=== PATIENT | male | born 1950 | race Caucasian/White ===

== ENCOUNTER 2016-04-13 16:24 | Inpatient (IN) | payer SELFPAY ==
[~2016-04-13] VITALS: Ht 167.6 cm; Wt 61.2 kg
[2016-04-13] MEDS ORDERED: HYDROMORPHONE 1 MG/1 ML DISP.SYRIN ONE (17:17)
[2016-04-13] MEDS ORDERED: HYDROMORPHONE 1 MG/1 ML DISP.SYRIN IV ONE (17:30)
[2016-04-13 17:34] LABS: BASOPHILS % (AUTO) 0.4 % (0.0-2.0); DIFF TOTAL % 100 %; EOSINOPHILS % (AUTO) 0.3 % (0.0-6.0); HEMATOCRIT 42 % (39-51); HEMOGLOBIN 14.2 g/dL (13.5-17.5); LYMPHOCYTES # (AUTO) 1.9 /CMM (0.8-4.8); LYMPHOCYTES % (AUTO) 18.4 % (20.0-44.0); MEAN CORPUSCULAR HEMOGLOBIN 32 PG (26.0-33.0); MEAN CORPUSCULAR HGB CONC 34 g/dl (31.0-36.0); MEAN CORPUSCULAR VOLUME 96 fL (80-96); MONOCYTES # (AUTO) 0.6 /CMM (0.1-1.30); MONOCYTES % (AUTO) 5.7 % (2.0-12.0); NEUTROPHILS % (AUTO) 75.2 % (43.0-81.0); PLATELET COUNT (AUTO) 405 /CMM (150-450); WHITE BLOOD COUNT (AUTO) 10.6 K/uL (4.3-11.0)
[2016-04-13 17:44] LABS: CALCIUM, SERUM 8.9 mg/dL (8.5-10.1); POTASSIUM 4.3 mmol/L (3.5-5.1)
[2016-04-13 19:18] LABS: INR 0.95 (0.87-1.13); PROTHROMBIN TIME 10.3 SECS (9.5-12.7)
[2016-04-13] MEDS ORDERED: MORPHINE SULFATE INJ 2 MG/ML DISP.SYRIN IV PRN (19:30)
[2016-04-13] MEDS ORDERED: ACETAMINOPHEN 325 MG TABLET PO PRN (19:30)
[2016-04-13] MEDS ORDERED: MAG HYDROX/AL HYDROX/SIMETH 30 ML UDC PO PRN (19:30)
[2016-04-13] MEDS ORDERED: ZOLPIDEM TARTRATE 5 MG TABLET PO PRN (19:30)
[2016-04-13] MEDS ORDERED: ONDANSETRON HCL/PF 4 MG/2 ML VIAL IVP PRN (19:30)
[2016-04-13] MEDS ORDERED: Z GUARD REMEDY 2 OZ OINT TP PRN (19:30)
[2016-04-13] MEDS ORDERED: MAGNESIUM HYDROXIDE 30 ML UDC PO PRN (19:30)
[2016-04-13] MEDS ORDERED: HYDROCODONE/APAP 5/325MG 1 EACH TABLET PO PRN (19:30)
[2016-04-13 19:40] VITALS: BP 135/87
[2016-04-13] MEDS ORDERED: IV SET PRIMARY PUMP SET 1 EA INFUS.SET MC ONE (20:17)
[2016-04-13] MEDS: IV NS 0.9% 1,000 ML IV PRN (20:24)
[2016-04-13] MEDS: PANTOPRAZOLE 40 MG TABLET.DR PO SCH (20:24)
[2016-04-13 22:56] VITALS: BP 135/87
[2016-04-14] MEDS: PANTOPRAZOLE 40 MG TABLET.DR PO SCH (07:30)
[2016-04-14 07:52] LABS: BASOPHILS % (AUTO) 0.4 % (0.0-2.0); DIFF TOTAL % 100 %; EOSINOPHILS # (AUTO) 0.1 /CMM (0.0-0.7); EOSINOPHILS % (AUTO) 0.7 % (0.0-6.0); HEMATOCRIT 38 % (39-51); LYMPHOCYTES # (AUTO) 2.2 /CMM (0.8-4.8); MEAN CORPUSCULAR HEMOGLOBIN 33 PG (26.0-33.0); MEAN CORPUSCULAR HGB CONC 34 g/dl (31.0-36.0); MEAN CORPUSCULAR VOLUME 96 fL (80-96); MONOCYTES % (AUTO) 9.1 % (2.0-12.0); NEUTROPHILS # (AUTO) 7.8 /CMM (1.8-8.9); NEUTROPHILS % (AUTO) 69.8 % (43.0-81.0); PLATELET COUNT (AUTO) 343 /CMM (150-450); RED BLOOD CELL COUNT(AUTO) 3.99 MIL/uL (4.5-6.0); WHITE BLOOD COUNT (AUTO) 11.1 K/uL (4.3-11.0)
[2016-04-14 07:58] LABS: ALBUMIN 3.7 g/dL (3.4-5.0); CALCIUM, SERUM 8.6 mg/dL (8.5-10.1); CREATININE 0.7 mg/dL (0.6-1.3); POTASSIUM 3.8 mmol/L (3.5-5.1)
[2016-04-14 08:00] VITALS: BP 123/73
[2016-04-14 08:14] LABS: BILIRUBIN,TOTAL 0.6 mg/dL (0.2-1.0); PHOSPHORUS 3.7 mg/dL (2.5-4.9); TOTAL PROTEIN, SERUM 7.1 g/dL (6.4-8.2)
[2016-04-14] MEDS: IV NS 0.9% 1,000 ML IV PRN (11:15)
[2016-04-14 16:00] VITALS: BP_SYST 133; BP_DIAS 67; BP_DIAS 69
[2016-04-14 20:00] VITALS: BP 112/41
[2016-04-14 22:00] VITALS: BP 112/41
[2016-04-15 08:00] VITALS: BP 135/84
[2016-04-15] MEDS: PANTOPRAZOLE 40 MG TABLET.DR PO SCH (08:51)
[2016-04-15] MEDS ORDERED: BENZTROPINE MESYLATE (2MG/2ML) 2 MG/2 ML AMPUL IM STA (11:40)
[2016-04-15] MEDS ORDERED: LORAZEPAM 1 MG TABLET PO PRN (12:00)
[2016-04-15] MEDS ORDERED: HALOPERIDOL LACTATE INJ 5 MG/ML VIAL IM ONE (12:00)
[2016-04-15] MEDS ORDERED: risperiDONE-M 0.5 MG TAB.RAPDIS PO STA (12:12)
[2016-04-15 16:00] VITALS: BP 124/70
[2016-04-15] MEDS: risperiDONE-M 0.5 MG TAB.RAPDIS PO SCH ×2 (16:49→16:52)
[2016-04-15 19:46] VITALS: BP 112/60
[2016-04-15 22:00] VITALS: BP 112/60
[2016-04-16 08:00] VITALS: BP 124/71
[2016-04-16] MEDS: PANTOPRAZOLE 40 MG TABLET.DR PO SCH (08:31)
[2016-04-16] MEDS: risperiDONE-M 0.5 MG TAB.RAPDIS PO SCH (08:32)
== END 2016-04-16 14:30 | disposition left against medical advice (07) | DRG 563 ==
LOC: ER 16:27 → MED 17:25
PROVIDERS: ADMIT Internal Medicine; ATTEND Internal Medicine
DX: S82.841A Displaced bimalleolar fracture of right lower leg, initial encounter for closed fracture (principal); E87.1 Hypo-osmolality and hyponatremia; F20.0 Paranoid schizophrenia; V18.0XXA Pedal cycle driver injured in noncollision transport accident in nontraffic accident, initial encounter; Y93.55 Activity, bike riding; Y92.9 Unspecified place or not applicable; E11.9 Type 2 diabetes mellitus without complications; I25.10 Atherosclerotic heart disease of native coronary artery without angina pectoris; F17.210 Nicotine dependence, cigarettes, uncomplicated; M77.9 Enthesopathy, unspecified; F29 Unspecified psychosis not due to a substance or known physiological condition
CPT/HCPCS: 36415; 71010-TC; 73610-TC; 80048-TC; 80053-TC; 80061-TC; 83735-TC; 84100-TC; 85025-TC; 85730-TC; 87081-TC; 93307-TC; A4606; J0515; J1170; J1630; J2405; J7030; Z7610